=== PATIENT | female | born 1950 | race Caucasian/White ===

== ENCOUNTER → 2018-03-18 | Outpatient (CLI) | payer MEDICARE ==
[2018-03-18 12:10] LABS: Calcium 9.6 mg/dL (8.4-10.2); Potassium 3.7 mmol/L (3.5-5.1)
--- NOTE | 2018-03-18 13:22 | MR ---
EXAMINATION TYPE: MR cervical spine wo/w con DATE OF EXAM: 03/18/2018 COMPARISON: None HISTORY: Neck pain TECHNIQUE: Multiplanar, multisequence images of the cervical spine were acquired utilizing 6 mL intravenous Gada vist gadolinium contrast. Diffusion weighted imaging was performed. C2-C3: No evidence for degenerative disc disease. No disc bulge/herniation or protrusion. No Canal stenosis. Foramina are patent bilaterally. C3-C4: Lateral extension of endplate disc complex results in bilateral foraminal encroachment. No sig nificant central stenosis. Small posterior disc bulge causes only slight anterior mass effect on the thecal sac. C4-C5: Listhesis is noted possibly due to facet arthropathy. Foraminal encroachment is present right greater than left. No sizable disc herniation. No significant central stenosis. C5-C6: Posterior broad-based disc bulge may contact the anterior cervical cord, lateral extension end plate disc complex is noted bilaterally causing foraminal encroachment. Moderate central stenosis stanislaw pected. There may be some deformity of the cervical cord due to mass effect from posterior extension of endplate disc complex. C6-C7: Disc space is not seen. No significant spinal stenosis. C7-T1: There is foraminal encroachment present contributed by the listhesis greater on the left, post erior extension of endplate disc complex causes anterolateral mass effect on the thecal sac. No signi ficant central stenosis. Correlate for left C8 radiculopathy. There is fusion present at C6-7, anterolisthesis grade 1 C7-T1. Loss of disc height signal present at the disc spaces greatest at C5-6. Minimal anterolisthesis grade 1 C4-5. Suspect a spinal curvature. Cervical cord signal is maintained. There are foci of susceptibility artifact present in the right ne ck likely due to postop change. No abnormal enhancement following contrast menstruation. IMPRESSION: Postop changes, degenerative disc disease, suspect some possible spinal stenosis at C5-C6. Multilevel foraminal encroachment, additional findings above, correlate for radiculopathy.
== END | disposition home or self-care (01) ==
LOC: RADMRIMAIN 11:34
PROVIDERS: ATTEND Nurse Practitioner Family
DX: M50.222 Other cervical disc displacement at C5-C6 level (principal); M50.30 Other cervical disc degeneration, unspecified cervical region; M43.13 Spondylolisthesis, cervicothoracic region; Z98.1 Arthrodesis status
CPT/HCPCS: 80048; 72156; 36415; A9581